=== PATIENT | female | born 1990 | race Caucasian/White ===

== ENCOUNTER 2016-10-13 22:37 | Outpatient (CLI) | payer BC ==
[~2016-10-13] VITALS: Ht 157.5 cm; Wt 89.1 kg
[2016-10-13 23:07] VITALS: Ht 157.5 cm; Wt 89.1 kg
[2016-10-13] MEDS ORDERED: FERR1TAB23 (23:07)
[2016-10-13] MEDS ORDERED: CITA10TA4 PO (23:07)
[2016-10-13] MEDS ORDERED: PANT40TA PO (23:07)
[2016-10-13] MEDS ORDERED: RANI150T3 PO (23:07)
[2016-10-13] MEDS ORDERED: PRENTAB26 PO (23:07)
[2016-10-13] MEDS ORDERED: LORAPOW16 (23:07)
[2016-10-14] MEDS ORDERED: INFLUENZA ADMINISTRATION CHARGE ONE (08:00)
[2016-10-14] MEDS ORDERED: INFLUENZA VIRUS QUAD VACCINE 0.5 ML SYR IM. ONE (08:00)
--- NOTE | 2016-10-16 13:19 | EDITING REQUIRED CODING QUERY ---
DIAGNOSIS NEEDED To promote full compliance with coding requirements relating to patient care, physician participation is requested in all cases of clinical coder uncertainty. Please assist us with the question(s) below: Coding Question: The patient received care in labor and delivery on 10/13/16 as noted within the record. Please document the diagnosis that is being addressed by the medication/treatment. Provider Response: DIAGNOSIS: labor Thank you for your assistance, Mona Rodriguez - Staff Registered Nurse
== END 2016-10-13 23:59 | disposition home or self-care (01) ==
LOC: C.OPB 22:37 → C.LD 22:38 → C.OPB 23:59
PROVIDERS: ATTEND Obstetrics & Gynecology
DX: O60.03 Preterm labor without delivery, third trimester (principal); Z3A.33 33 weeks gestation of pregnancy

== ENCOUNTER 2016-11-15 14:40 | Inpatient (IN) | payer BC ==
[~2016-11-15] VITALS: Ht 157.5 cm; Wt 91.5 kg
[~2016-11-15 14:40] MED LIST: CITA10TA4 PO; FERR1TAB23; LORAPOW16; PANT40TA PO; PRENTAB26 PO; RANI150T3 PO
[2016-11-15 15:56] LABS: MEAN CELL VOLUME 90.4 fL (80-100); MEAN CORPUSCULAR HEMOGLOBIN 31.1 pg (25-34); MEAN CORPUSCULAR HGB CONC 34.4 g/dl (32-36); MEAN PLATELET VOLUME 9.9 fL (7.4-10.4); PLATELET COUNT 470 K/uL (130-400); RED BLOOD COUNT 3.76 M/uL (4.2-5.4); WHITE BLOOD COUNT 8.32 K/uL (4.8-10.8)
[2016-11-15 16:13] VITALS: Ht 157.5 cm; Wt 91.5 kg
[2016-11-15] MEDS ORDERED: VNTHFA/IN INH (16:20)
[2016-11-15] MEDS ORDERED: hydrOXYzine HCL 10 MG TAB PO PRN (16:45)
[2016-11-15] MEDS ORDERED: DINOPROSTONE 10 MG INSERT PV ONE (17:00)
--- NOTE | 2016-11-15 17:11 | HISTORY & PHYSICAL EXAMINATION ---
DATE OF ADMISSION: 11/15/2016 REASON FOR ADMISSION: The patient is 38 weeks and 3 days with cholestasis of . Her GBS is negative. Her EDC is 11/26/2016. PAST MEDICAL HISTORY: Significant for smoking during , allergic rhinitis, migraine, asthma in remission, GERD, anxiety and cholestasis of . MEDICATIONS: Celexa and Atarax and vitamins. FAMILY HISTORY: Noncontributory. REVIEW OF SYSTEMS: Negative. ALLERGIES: No known allergies. PHYSICAL EXAMINATION: HEENT: Within normal limits. LUNGS: Clear to auscultation. COR: Regular rate and rhythm. ABDOMEN: Soft, nontender, gravid. heart tone category 1. EXTREMITIES: Within normal limits. ASSESSMENT: Term at 38 weeks and 3 days with cholestasis of . PLAN: Cervidil induction for ripening followed by induction of labor.
--- NOTE | 2016-11-15 17:22 | Progress Note ---
Progress Note Date of Service November 15, 2016. Progress Note Admit Note H&P dictated. 26 WF P0010 at 38.2 weeks with cholestasis of brought in for induction as recommended by MFM in [facility]. Cervix fingertip/50/-3/ vertex/posterior/firm. !0 mg Cervidil inserted in posterior vault for cervical ripening. GBS negative. FHT Cat 1.
[2016-11-15 17:32] LABS: ALKALINE PHOSPHATASE 246 U/L (45-117); ALT/SGPT 21 U/L (12-78); AST/SGOT 19 U/L (15-37)
[2016-11-16] MEDS ORDERED: ACETAMINOPHEN 500 MG TAB PO ONE (04:23)
[2016-11-16] MEDS ORDERED: ACETAMINOPHEN 500 MG TAB PO STA (04:26)
[2016-11-16] MEDS ORDERED: NURSING VERBAL MED ORDER ONE (04:30)
[2016-11-16] MEDS ORDERED: LACTATED RINGER'S 1000ML 500 ML IV PRN ×2 (07:24→17:21)
[2016-11-16] MEDS ORDERED: OXYTOCIN 30 UNITS/500ML NSS IV PRN (07:30)
[2016-11-16] MEDS ORDERED: BUTORPHANOL TARTRATE 1 MG/ML VIAL IV PRN ×2 (07:30→16:00)
[2016-11-16] MEDS ORDERED: ONDANSETRON INJ 2 MG/ML 2 ML VIAL IV PRN ×2 (07:30→17:30)
[2016-11-16] MEDS: LACTATED RINGER'S 1000ML 1,000 ML IV SCH ×3 (11:54→23:47)
[2016-11-16] MEDS: CITALOPRAM 20 MG TAB PO SCH (12:01)
[2016-11-16] MEDS ORDERED: EpHEDrine SULFATE INJ 50 MG/ML AMP ONE (16:46)
[2016-11-16] MEDS ORDERED: BUPIVACAINE 0.25% 30 ML VIAL ONE ×2 (16:46→21:16)
[2016-11-16] MEDS ORDERED: FENTANYL CITRATE INJ 50 MCG/1 ML 2 ML VIAL ONE ×2 (16:47→21:16)
[2016-11-16] MEDS ORDERED: FENTANYL 2MCG/ML ROPIV 1.25MG/ML 100ML BAG EPI ONE (16:47)
[2016-11-16] MEDS ORDERED: EpHEDrine SULFATE INJ 50 MG/ML AMP IV PRN (17:30)
[2016-11-16] MEDS ORDERED: NALBUPHINE HCL INJ 10 MG/ML AMP IV PRN (17:30)
[2016-11-16] MEDS ORDERED: DiphenhydrAMINE HCL 50 MG/ML VIAL IV PRN (17:30)
[2016-11-16] MEDS ORDERED: NALOXONE HCL INJ 0.4 MG/1 ML VIAL/CARP IV PRN (17:30)
[2016-11-16] MEDS: FENTANYL 2MCG/ML ROPIV 1.25MG/ML 100ML BAG EPI PRN ×3 (20:38→22:58)
--- NOTE | 2016-11-16 21:37 | Progress Note ---
Progress Note Date of Service November 16, 2016. Progress Note I was called by pt's nurse for increased pain, not improved by pt using PCEA and increasing basal rate. I came to see the pt. She said she was having perineal pain/pressure constantly and somewhat worse w/ contractions. She looked to be in no distress. I reminded her that pressure was unlikely to be relieved by the epidural, and told her that any discomfort in the perineal area is especially difficult to treat, but I would try. She understood. On exam, she had a b/l T9-10 level. I sat her up and gave a total of 4 mL of 0.25% bupivicaine, 2 mL NS, 100 mcg fentanyl in divided doses. After several minutes, she said her discomfort was much better. I again reminded her that she would not be free of pressure, especially perineal pressure, until after delivery. She understood and said she was very happy with her pain control. When I left her vitals were stable, as were heart tones.
[2016-11-17] VITALS (17 sets, daily range): BP systolic 95–111; BP diastolic 40–82; PULSE 121–128; TEMP 36.7–37.1; O2SAT 95–98
[2016-11-17] MEDS ORDERED: FENTANYL CITRATE INJ 50 MCG/1 ML 2 ML VIAL ONE ×2 (03:00→05:56)
[2016-11-17] MEDS ORDERED: NURSING VERBAL MED ORDER ONE (03:00)
[2016-11-17] MEDS: LACTATED RINGER'S 1000ML 1,000 ML IV SCH (03:03)
--- NOTE | 2016-11-17 03:17 | Progress Note ---
Progress Note Date of Service November 17, 2016. Progress Note Asked by nurse for re-dose again. Pt is apparently 10 cm and tried to push w/ out success due to fatigue. Having pain w/ contractions. Dr. Liz is hoping to get pt some relief so that she can rest and regain some energy to push. I went to see pt. She is having the same perineal cramping. Exam unchanged from prior. Appears to be in more discomfort than before. Same re-dose given (see my previous note) w/ pt sitting up. I reiterated that this perineal pain would not go away until she delivers. She got relief and was again happy w/ her pain control. Now falling asleep. Vitals stable. heart tones unchanged.
[2016-11-17] MEDS: FENTANYL 2MCG/ML ROPIV 1.25MG/ML 100ML BAG EPI PRN (04:07)
[2016-11-17] MEDS ORDERED: CEFAZOLIN IV 3,000 MG in DEXTROSE 5% 50ML 50 ML IV STA (05:38)
[2016-11-17] MEDS ORDERED: CITRIC ACID/SODIUM CITRATE 15 ML UDC PO STA (05:38)
[2016-11-17] MEDS ORDERED: OXYTOCIN INJ 10 UNITS/ML VIAL ONE ×2 (05:56→06:37)
[2016-11-17] MEDS ORDERED: MoRPHine SULFATE PF 1 MG/ML 10 ML AMP/VIAL ONE (05:56)
[2016-11-17] MEDS ORDERED: ONDANSETRON INJ 2 MG/ML 2 ML VIAL ONE (05:56)
[2016-11-17] MEDS ORDERED: LIDOCAINE/EPINEPHRINE 2% 1:200,000 20 ML SDV ONE ×2 (05:56→07:30)
[2016-11-17] MEDS ORDERED: MIDAZOLAM HCL 1 MG/ML 2ML VIAL ONE (06:57)
[2016-11-17] MEDS ORDERED: METHYLERGONOVINE MALEATE 0.2 MG/ML AMP ONE (06:57)
[2016-11-17] MEDS ORDERED: MISOPROSTOL 200 MCG TAB ONE (07:01)
[2016-11-17] MEDS ORDERED: LACTATED RINGER'S 1000ML 1,000 ML IV SCH (07:27)
[2016-11-17] MEDS ORDERED: BENZOCAINE 20% AER SPR 82.5 GM CAN EXT PRN (07:30)
[2016-11-17] MEDS ORDERED: SUPERCREAM 0.870 % 15GM JAR EXT PRN (07:30)
[2016-11-17] MEDS ORDERED: MAGNESIUM HYDROXIDE SUSP 30 ML UDC PO PRN (07:30)
[2016-11-17] MEDS ORDERED: LANOLIN OINT EXT PRN ×2 (07:30)
[2016-11-17] MEDS ORDERED: SENNA 8.6 MG TAB PO PRN (07:30)
[2016-11-17] MEDS ORDERED: DIPHTHERIA/TETANUS/PERTUSSIS 0.5 ML SYR/VIAL IM. ONE (07:30)
[2016-11-17] MEDS ORDERED: HYDROCORTISONE ACETATE 25 MG SUPP PR PRN (07:30)
--- NOTE | 2016-11-17 07:41 | [facility] Post Operative Brief Note ---
Immediate Operative Summary Operative Date November 17, 2016. Pre-Operative Diagnosis IUP Cholestasis of Failure to progress Post-Operative Diagnosis Same Procedure(s) Performed Primary caesarean section Delivery of live male child at 0636 Lower uterine transverse incision Surgeon Dr. Liz Home Worker Surgeon(s) Amelia Mei RN Estimated Blood Loss 800cc Findings Patient delivered a viable male in the vertex position at 0636 via primary LTCS. APGARs were 7 at 1 minute and 9 at 5 minutes weighing 8 # 4 oz. Cord blood obtained. An intact placenta with 3 VC delivered manually at 0637. Normal uterus and bilateral tubes and ovaries noted. Patient tolerated the surgery well and was sent to recovery with stable vital signs. Fluids (cc crystalloids) 2400 Specimens Placenta-exam Cord blood Drains Payne to Hestand Anesthesia Epidural bolus Complication(s) None Disposition L&D
--- NOTE | 2016-11-17 07:48 | Anesthesiology Progress Note ---
Anesthesia Post Op Note Date & Time November 17, 2016 at 07:44 Vital Signs Pain Intensity: 0.0 Notes Mental Status: alert / awake / arousable, participated in evaluation Pt Amnestic to Procedure: No (recall as expected) Nausea / Vomiting: adequately controlled Pain: adequately controlled Airway Patency, RR, SpO2: stable & adequate BP & HR: stable & adequate Hydration State: stable & adequate Neuraxial Anesthesia: was administered, sensory block is resolving Anesthetic Complications: no major complications apparent Pt had C/S under epidural for arrest of descent. She had a pre-existing epidural which I dosed for the procedure. She was tachy before and during the procedure and remains so (HR in 120s when I placed epidural, 150s when we started the procedure, 130-140s now). She says she has a h/o this. Otherwise, her anesthetic course was unremarkable. Post-op vitals: BP 129/59, HR 140, RR 18 , SpO2 96% on RA, T 36.5.
[2016-11-17] MEDS ORDERED: EpHEDrine SULFATE INJ 50 MG/ML AMP ONE (07:49)
[2016-11-17] MEDS ORDERED: ALBUTEROL HFA 8 GM INHALER INH PRN (08:00)
[2016-11-17] MEDS ORDERED: RANITIDINE HCL 150 MG TAB PO SCH (08:00)
[2016-11-17] MEDS ORDERED: FERROUS SULFATE 325 MG TAB PO SCH (08:00)
[2016-11-17] MEDS: OXYTOCIN INJ 30 UNITS in LACTATED RINGER'S 1000ML 1,000 ML IV SCH ×2 (08:06→17:21)
[2016-11-17] MEDS ORDERED: LACTATED RINGER'S 1000ML 500 ML IV PRN (08:07)
[2016-11-17] MEDS ORDERED: SODIUM CHLORIDE 0.9% 1000ML 1,000 ML IV PRN (08:07)
[2016-11-17] MEDS ORDERED: NALOXONE HCL INJ 0.08 MG in SYRINGE 1.8 ML IV PRN (08:07)
--- NOTE | 2016-11-17 08:09 | Anesthesia Procedure Note ---
Anesthesia Epidural Removal Nt Date & Time November 17, 2016 at 08:09 Vital Signs Pain Intensity: 0.0 Notes Mental Status: alert / awake / arousable, participated in evaluation Nausea / Vomiting: adequately controlled Pain: adequately controlled Airway Patency, RR, SpO2: stable & adequate BP & HR: stable & adequate Hydration State: stable & adequate Neuraxial Anesthesia: was administered, sensory block is resolving Anesthetic Complications: no major complications apparent, pt satisfied with anesthetic care Epidural: removed without complications, with tip intact
[2016-11-17] MEDS ORDERED: NALOXONE HCL 0.4 MG/1 ML VIAL/CARP IV PRN (08:15)
[2016-11-17] MEDS ORDERED: DiphenhydrAMINE HCL 50 MG/ML VIAL IV PRN (08:15)
[2016-11-17] MEDS ORDERED: EpHEDrine SULFATE INJ 50 MG/ML AMP IV PRN (08:15)
[2016-11-17] MEDS ORDERED: ONDANSETRON INJ 2 MG/ML 2 ML VIAL IV PRN (08:15)
[2016-11-17] MEDS ORDERED: MoRPHine SULFATE 2 MG/ML CARP IV PRN (08:15)
[2016-11-17] MEDS ORDERED: PROMETHAZINE HCL INJ 25 MG in SODIUM CHLORIDE 0.9% 50ML 50 ML IV PRN (08:15)
[2016-11-17] MEDS ORDERED: NO NARCOTICS OR SEDATIVES SCH (08:15)
[2016-11-17] MEDS ORDERED: MEPERIDINE HCL 25 MG/ML CARP IV PRN (08:15)
[2016-11-17] MEDS ORDERED: MoRPHine SULFATE PF 1 MG/ML 10 ML AMP/VIAL EPI PRN (08:15)
[2016-11-17] MEDS: CITALOPRAM 20 MG TAB PO SCH ×2 (08:21→09:13)
[2016-11-17] MEDS ORDERED: MISOPROSTOL 200 MCG TAB PO SCH (08:30)
[2016-11-17] MEDS: KETOROLAC TROMETHAMINE 30 MG/ML VIAL IV. PRN ×3 (08:36→22:21)
--- NOTE | 2016-11-17 08:38 | OB/GYN Progress Note ---
MONOGRAM MAKER Progress Note Date of Service: November 17, 2016. Postop check Patient is seen and examined Feels well, no complaints Breast feeding her baby Pain is under control with meds No CP/ SOB/ Dizziness/ N&V/ VB/ Leg pain Not OOB yet Tolerating clears Still anxious but states she is fine, declines any meds or psychiatry counseling States will take Ativan if needed later VS: Pulse 120-130's, has been high since admission, was 150's in OR UOP: 102/57 UOP: About 300 ml in bag since OR ( 2hours) PE: General: Alert, orientedx3, NAD CVS: S1S2 RRR, tachycardic Lungs: CTAB Abd: soft, NT, ND, BS+, Dressing C/D/I, fundus firm, at the U Lochia: dark moderate Ext: NT, no edema, SCD's on AP: 26 yo female s/p Primary Csection this morning , pod#0 VSS, Afebrile doing well UOP good Will increase pitocin rate to 150 ml/hour Cytotec intrabuccal Continue to monitor closely and postop care Encourage PO intake, may ambulate this evening All questions were answered
[2016-11-17] MEDS ORDERED: LORAZEPAM 2 MG/ML 1 ML VIAL IV PRN (08:45)
[2016-11-17] MEDS ORDERED: LORAZEPAM INJ 0.5 MG in SYRINGE 0.75 ML IV PRN (08:45)
--- NOTE | 2016-11-17 09:01 | OPERATIVE REPORT ---
DATE OF OPERATION: 11/17/2016 PREOPERATIVE DIAGNOSES: 1. Intrauterine at 38 weeks and 5 days' gestation. 2. Cholestasis of . 3. Failure to progress. POSTOPERATIVE DIAGNOSES: Same. OPERATIVE PROCEDURE: Primary low transverse section. SURGEON: Dr. Christopher Liz. SNACK FOODS MIXER OPERATOR: Amelia Mei RN ANESTHESIA: Epidural bolus. ESTIMATED BLOOD LOSS: 800 mL. INTRAVENOUS FLUIDS: 2400 mL crystalloids. URINE OUTPUT: 150 mL clear urine. DRAINS: Payne to gravity. COMPLICATIONS: None. DISPOSITION: To labor and delivery. OPERATIVE FINDINGS: The patient delivered a viable male infant in the vertex position at 06:36 via primary low transverse section. Apgars were 7 at 1 minute and 9 at 5 minutes. Baby weighed 8 pounds 4 ounces. Cord blood was then obtained and an intact placenta with 3-vessel cord was delivered manually at 06:37 and sent to pathology. Normal uterus and bilateral tubes and ovaries were noted. The patient tolerated the surgery well and was sent to recovery with stable vital signs. OPERATIVE PROCEDURE IN DETAIL: The patient was taken to the operating room, where her epidural was bolused. She was immediately placed in the dorsal supine position with a left lateral tilt and was prepped and draped in a manner appropriate for the procedure. Once anesthesia was found to be adequate, a Pfannenstiel skin incision was made 2 fingerbreadths above the pubic symphysis and was carried down through to a layer of the rectus fascia. The fascia was nicked in the midline and extended bilaterally with curved Bolton scissors. The superior aspect of the fascial incision was grasped with Moni clamps, elevated, and the rectus muscles were dissected off with the use of the electrocautery and curved Bolton scissors. Likewise, the inferior aspect of the fascial incision was grasped with Moni clamps, elevated, and the rectus muscles were dissected off with the use of the curved Bolton scissors. The rectus muscles were in the midline and the peritoneum was then grasped with hemostats x2 and entered with Metzenbaum scissors. The peritoneal incision was then extended cephalocaudally with gentle traction. The bladder blade was then placed within the abdomen and the vesicouterine peritoneum was identified and a bladder flap was created with the Metzenbaum scissors and digital traction. The bladder flap was then reincorporated beneath Nils blade. A transverse incision was then made on the uterus and extended bilaterally with the bandage scissors. The head was then identified and delivered through the incision along with the rest of the body. The baby was bulb suctioned at delivery. Cord was clamped x2 and cut. The baby was immediately handed to an awaiting aviation maintenance instructor for further evaluation and management. Please see their notes for further baby assessment. Cord blood was then obtained and an intact placenta with a 3-vessel cord was delivered manually and sent to pathology. The uterus was then exteriorized and wrapped in a moist laparotomy sponge. Ten units of Pitocin was given intrauterine. The uterus was then cleared of any trailing membrane and debris with the laparotomy sponge. The uterine incision was grasped with ring forceps at 4 quadrants and was closed with 0 Vicryl suture in a continuous locking fashion. A second 0 Vicryl suture was used in imbricating fashion to ensure hemostasis. Any residual bleeding was suture ligated with 0 Vicryl suture in a [id number] interrupted fashion. It was noted that the uterus remained boggy and therefore, she was given Methergine 0.25 mg IM. Inspection of the uterine incision was noted to be hemostatic. The posterior cul-de-sac was then irrigated with warm saline solution. The uterus was then placed back within its normal anatomic position within the abdomen. The anterior cul-de-sac was then irrigated with warm saline solution. Again, the uterine incision was noted to be hemostatic. The bladder flap was reapproximated to the lower uterine segment with 3-0 Vicryl suture in continuous running fashion. All instruments were then removed from the abdomen. The peritoneum was grasped with Odalis clamps at 4 quadrants and was closed with 2-0 Vicryl suture in continuous running fashion. The rectus fascia was then closed with 0 Vicryl suture in continuous running fashion. The subcutaneous tissue was reapproximated with 2-0 Vicryl suture in continuous running fashion. Skin was then closed with dali. Excellent hemostasis was noted through all tissue layers. Both the patient and baby tolerated the surgery well and were sent to recovery with stable vital signs. All sponge and instrument counts were found to be correct x2. I attest to the content of the Intraoperative Record and any orders documented therein. Any exceptions are noted below. ROBINSON
[2016-11-17] MEDS: SIMETHICONE 80 MG CHEW PO SCH ×4 (09:04→20:08)
[2016-11-17] MEDS: DOCUSATE SODIUM 100 MG CAP PO SCH ×2 (09:04→20:08)
[2016-11-17] MEDS: PRENATAL VITAMIN TAB PO SCH (09:04)
[2016-11-17] MEDS: PANTOprazole SOD 40 MG TAB PO SCH (09:14)
[2016-11-17 12:16] LABS: HEMATOCRIT 23.9 % (37-47); MEAN CELL VOLUME 90.9 fL (80-100); MEAN CORPUSCULAR HEMOGLOBIN 30.4 pg (25-34); MEAN CORPUSCULAR HGB CONC 33.5 g/dl (32-36); MEAN PLATELET VOLUME 9.9 fL (7.4-10.4); PLATELET COUNT 359 K/uL (130-400); RED BLOOD COUNT 2.63 M/uL (4.2-5.4); WHITE BLOOD COUNT 22.37 K/uL (4.8-10.8)
[2016-11-17 12:17] LABS: BASO ABS # 0.01 K/uL (0-0.2); COMPLETE YES; IG% 0.4 %; LYMPH % 5.4 %; LYMPH ABS # 1.21 K/uL (1.2-3.4); MONO % 5.9 %; NEUT % 88.3 %
[2016-11-17 12:20] LABS: CALCIUM 8.2 mg/dl (8.5-10.1); CREATININE 0.76 mg/dl (0.60-1.20); POTASSIUM 3.5 mmol/L (3.5-5.1)
[2016-11-17 12:37] LABS: ALB/GLOB RATIO 0.7 (0.9-2)
[2016-11-17] MEDS: MAGNESIUM SULFATE 1GM / D5W 1 GM in PREMIXED IN D5W 100 ML IV SCH ×2 (15:06→16:40)
[2016-11-17] MEDS: CALCIUM CARBONATE 1250MG TAB PO SCH ×2 (15:06→20:09)
[2016-11-17 15:30] LABS: HEMATOCRIT 21.7 % (37-47)
[2016-11-17] MEDS ORDERED: ACETAMINOPHEN 325 MG TAB PO ONE (16:15)
--- NOTE | 2016-11-17 16:15 | OB/GYN Progress Note ---
ARMATURE REPAIRER Progress Note Date of Service: November 17, 2016. See QS notes for details Repeat H&H: 7.4/21.4 Patient tachycardic Recommended blood transfusion Discussed the risks and benefits in details and went over the consent with her All questions were answered Will transfuse 2 units of PRBCC Continue to monitor closely
[2016-11-17] MEDS ORDERED: ACETAMINOPHEN 325 MG TAB PO SCH (16:30)
[2016-11-17] MEDS: NALBUPHINE HCL INJ 10 MG/ML AMP IV PRN ×2 (17:47→21:37)
--- NOTE | 2016-11-17 18:48 | OB/GYN Progress Note ---
MANAGER DELI Progress Note Date of Service: November 17, 2016. Patient is reevaluated She is having 1st unit of blood now Feels well no complaints Did not want to have Benadryl due to f/h of severe reaction ( mother had TX after benadryl) No itching or hives No CP/SOB Nursing her baby comfortably Discussed benefits of breast feeding for baby and herself She had questions about TOLAC/ with next She was on Ranitidine for GERD, likes to start it back Continue to monitor closely All questions were answered
[2016-11-17] MEDS ORDERED: FENTANYL CITRATE INJ 50 MCG/1 ML 2 ML VIAL IV ONE (19:30)
[2016-11-17] MEDS: RANITIDINE HCL 150 MG TAB PO SCH (20:09)
[2016-11-18] VITALS (8 sets, daily range): BP systolic 95–121; BP diastolic 58–77; PULSE 109–116; TEMP 36.6–37.1; O2SAT 98
[2016-11-18] MEDS: OXYTOCIN INJ 30 UNITS in LACTATED RINGER'S 1000ML 1,000 ML IV SCH ×2 (01:00→14:33)
[2016-11-18] MEDS ORDERED: ONDANSETRON INJ 2 MG/ML 2 ML VIAL IV PRN (01:30)
[2016-11-18] MEDS ORDERED: KETOROLAC TROMETHAMINE 30 MG/ML VIAL IV. PRN (01:30)
[2016-11-18] MEDS ORDERED: ZOLPIDEM TARTRATE 5 MG TAB PO PRN (01:30)
[2016-11-18] MEDS ORDERED: DC INTRASPINAL MORPHINE SCH (01:30)
[2016-11-18] MEDS ORDERED: OXYCODONE/ACETAMINOPHEN 5-325 TAB PO PRN (01:30)
[2016-11-18 05:38] LABS: BASO % 0.2 %; BASO ABS # 0.03 K/uL (0-0.2); EOS % 0.8 %; HEMATOCRIT 24.6 % (37-47); IG% 0.4 %; LYMPH % 7.3 %; LYMPH ABS # 1.15 K/uL (1.2-3.4); MEAN CELL VOLUME 90.8 fL (80-100); MEAN CORPUSCULAR HEMOGLOBIN 31.7 pg (25-34); MEAN PLATELET VOLUME 10.2 fL (7.4-10.4); MONO % 7.8 %; NEUT % 83.5 %; PLATELET COUNT 300 K/uL (130-400); RED BLOOD COUNT 2.71 M/uL (4.2-5.4); WHITE BLOOD COUNT 15.67 K/uL (4.8-10.8)
[2016-11-18 06:32] LABS: COMPLETE YES
[2016-11-18] MEDS: METHYLERGONOVINE MALEATE 0.2 MG TAB PO SCH ×5 (07:25→23:15)
[2016-11-18] MEDS: CITALOPRAM 20 MG TAB PO SCH (07:26)
[2016-11-18] MEDS: FERROUS SULFATE 325 MG TAB PO SCH ×2 (07:27→19:48)
[2016-11-18] MEDS: DOCUSATE SODIUM 100 MG CAP PO SCH ×2 (07:27→19:48)
[2016-11-18] MEDS: SIMETHICONE 80 MG CHEW PO SCH ×4 (07:28→19:49)
[2016-11-18] MEDS: PRENATAL VITAMIN TAB PO SCH (07:28)
[2016-11-18] MEDS: CALCIUM CARBONATE 1250MG TAB PO SCH ×2 (07:28→19:49)
[2016-11-18] MEDS: RANITIDINE HCL 150 MG TAB PO SCH ×2 (07:29→19:49)
[2016-11-18] MEDS: PANTOprazole SOD 40 MG TAB PO SCH (07:29)
[2016-11-18] MEDS: OXYCODONE/ACETAMINOPHEN 5-325 TAB PO PRN ×3 (11:11→23:15)
[2016-11-18] MEDS: IBUPROFEN 600 MG TAB PO PRN ×3 (11:11→23:15)
--- NOTE | 2016-11-18 11:16 | OB/GYN Progress Note ---
OIL AND GAS EXPLORATION TECHNICIAN Progress Note Date of Service: November 18, 2016. Patient is seen and examined. She feels well, no complaints. Pain is under control with oral meds. Ambulated to BR Voided without difficulty Tolerating regular diet with out N&V Flatus + BM neg Bleeding is minimal No fever/ chills/ CP/ SOB/ palpations/ N&V/ Leg pain Breast feeding without problems Date Time Temp Pulse Resp B/P Pulse Ox O2 Delivery O2 Flow Rate FiO2 11/18/16 07:30 Room Air 11/18/16 07:30 37.1 116 20 100/67 11/18/16 04:35 36.9 116 20 95/58 Room Air 11/18/16 01:30 18 98 11/18/16 00:47 98 Room Air 11/18/16 00:44 36.9 115 20 108/59 98 Room Air 11/18/16 00:30 20 98 11/17/16 23:30 19 97 11/17/16 22:30 20 98 11/17/16 21:30 18 96 11/17/16 20:50 36.8 125 18 110/62 96 11/17/16 20:30 20 97 11/17/16 20:20 36.9 121 16 104/61 97 11/17/16 20:20 36.9 121 16 104/61 97 Room Air 11/17/16 20:05 36.8 121 18 96/61 97 11/17/16 19:51 36.9 121 18 96/60 95 11/17/16 19:50 36.9 125 18 96/60 95 11/17/16 19:30 18 96 11/17/16 19:00 36.9 125 18 96/40 95 11/17/16 18:30 18 97 11/17/16 18:30 36.7 122 16 104/59 97 11/17/16 18:14 36.8 128 18 95/56 97 11/17/16 17:58 37.1 121 18 111/82 11/17/16 17:30 20 96 11/17/16 16:30 18 95 11/17/16 15:51 20 95 11/17/16 15:51 96 Room Air 11/17/16 15:51 36.8 126 20 110/54 95 Room Air 8-Hour Column 11/17/16 11/18/16 11/18/16 16:00 00:00 08:00 Intake Total 1240 ml 1386 ml Output Total 850 ml Balance 1240 ml 536 ml 24-Hour Column 11/18/16 08:00 Intake Total 2626 ml Output Total 850 ml Balance 1776 ml Last 24 Hours Test 11/17/16 11:20 11/17/16 15:15 11/18/16 05:03 White Blood Count 22.37 K/uL 15.67 K/uL Red Blood Count 2.63 M/uL 2.71 M/uL Hemoglobin 8.0 g/dL 7.4 g/dL 8.6 g/dL Hematocrit 23.9 % 21.7 % 24.6 % Mean Corpuscular Volume 90.9 fL 90.8 fL Mean Corpuscular Hemoglobin 30.4 pg 31.7 pg Mean Corpuscular Hemoglobin Concent 33.5 g/dl 35.0 g/dl Platelet Count 359 K/uL 300 K/uL Mean Platelet Volume 9.9 fL 10.2 fL Neutrophils (%) (Auto) 88.3 % 83.5 % Lymphocytes (%) (Auto) 5.4 % 7.3 % Monocytes (%) (Auto) 5.9 % 7.8 % Eosinophils (%) (Auto) 0.0 % 0.8 % Basophils (%) (Auto) 0.0 % 0.2 % Neutrophils # (Auto) 19.76 K/uL 13.08 K/uL Lymphocytes # (Auto) 1.21 K/uL 1.15 K/uL Monocytes # (Auto) 1.31 K/uL 1.22 K/uL Eosinophils # (Auto) 0.00 K/uL 0.13 K/uL Basophils # (Auto) 0.01 K/uL 0.03 K/uL RDW Standard Deviation 46.5 fL 47.9 fL RDW Coefficient of Variation 14.1 % 14.5 % Immature Granulocyte % (Auto) 0.4 % 0.4 % Immature Granulocyte # (Auto) 0.08 K/uL 0.06 K/uL Red Blood Cell Morphology Unremarkable Unremarkable Sodium Level 137 mmol/L Potassium Level 3.5 mmol/L Chloride Level 106 mmol/L Carbon Dioxide Level 22 mmol/L Anion Gap 9.0 mmol/L Blood Urea Nitrogen 9 mg/dl Creatinine 0.76 mg/dl Est Creatinine Clear Calc Drug Dose 118.1 ml/min Estimated GFR () 125.5 Estimated GFR (Non- 108.3 BUN/Creatinine Ratio 12.0 Random Glucose 109 mg/dl Calcium Level 8.2 mg/dl Magnesium Level 1.1 mg/dl 1.6 mg/dl Total Bilirubin 0.5 mg/dl Aspartate Amino Transf (AST/SGOT) 33 U/L Alanine Aminotransferase (ALT/SGPT) 21 U/L Alkaline Phosphatase 179 U/L Total Protein 5.0 gm/dl Albumin 2.0 gm/dl Globulin 3.0 gm/dl Albumin/Globulin Ratio 0.7 PE: General: Alert, orientedx3, NAD CVS: S1S2 RRR, mild tachycardia Lungs; CTAB Abd: soft, NT, fundus firm, below Umbilicus Incision/ dali: Clean, dry, intact Perineum intact, Lochia rubra minimal Ext; NT, no edema AP: 26 yo s/p C Section, blood transfusion for anemia pod# 1 VSS Afebrile doing well Iron bid Magnesium PO Continue routine postop care Encourage ambulation, PO intake All questions were answered
[2016-11-18] MEDS: MAGNESIUM OXIDE 400 MG TAB PO SCH ×2 (12:12→19:49)
[2016-11-18] MEDS ORDERED: BISACODYL 5 MG TABEC PO ONE (22:00)
[2016-11-19 00:10] VITALS: BP 115/69; PULSE 101; TEMP 36.7; O2SAT 98
[2016-11-19] MEDS: IBUPROFEN 600 MG TAB PO PRN ×3 (06:10→21:35)
[2016-11-19] MEDS: OXYCODONE/ACETAMINOPHEN 5-325 TAB PO PRN ×3 (06:10→21:35)
[2016-11-19] MEDS ORDERED: BISACODYL 10 MG SUPP PR PRN (07:30)
[2016-11-19 08:15] LABS: HEMATOCRIT 27.1 % (37-47)
[2016-11-19] MEDS: CITALOPRAM 20 MG TAB PO SCH (08:45)
[2016-11-19] MEDS: FERROUS SULFATE 325 MG TAB PO SCH ×2 (08:46→20:15)
[2016-11-19] MEDS: DOCUSATE SODIUM 100 MG CAP PO SCH ×2 (08:46→20:15)
[2016-11-19] MEDS: MAGNESIUM OXIDE 400 MG TAB PO SCH ×2 (08:47→20:15)
[2016-11-19] MEDS: SIMETHICONE 80 MG CHEW PO SCH ×4 (08:47→20:15)
[2016-11-19] MEDS: CALCIUM CARBONATE 1250MG TAB PO SCH ×2 (08:47→20:15)
[2016-11-19] MEDS: PRENATAL VITAMIN TAB PO SCH (08:47)
[2016-11-19] MEDS: RANITIDINE HCL 150 MG TAB PO SCH ×2 (08:48→20:15)
[2016-11-19] MEDS: PANTOprazole SOD 40 MG TAB PO SCH (08:49)
[2016-11-19] MEDS ORDERED: NURSING VERBAL MED ORDER ONE (09:15)
--- NOTE | 2016-11-19 12:25 | OB/GYN Progress Note ---
SSIS DEVELOPER Progress Note Date of Service November 19, 2016. Subjective conversation w/ patient, physical exam Ambulation: ambulating normally Voiding: no voiding problems Passing Gas: Yes Diet Tolerance: Regular Diet Lochia: Small Feeding Type: Breast Feeding Pain: 2/10 Notes: Doing well, no concerns. Ambulating without difficulty. Tolerating regular diet. Lochia minimal. Feeling good today. Objective Vital Signs Date Time Temp Pulse Resp B/P Pulse Ox O2 Delivery O2 Flow Rate FiO2 11/19/16 07:30 Room Air 11/19/16 00:10 98 Room Air 11/19/16 00:10 36.7 101 18 115/69 98 Room Air 11/18/16 15:40 Room Air 11/18/16 15:40 36.6 111 18 121/77 Room Air Physical Exam General Appearance: WELL-APPEARING Respiratory/Chest: chest non-tender, lungs clear Cardiovascular: regular rate, rhythm Abdomen: normal bowel sounds, soft Fundus: Firm Incision Description: Clean, Dry & Intact Extremities: normal range of motion, non-tender, no calf tenderness Laboratory Results Last 24 Hours Test 11/19/16 07:55 Hemoglobin 9.2 g/dL Hematocrit 27.1 % Assessment and Plan Post-Op Day Number: 2 Continue Routine Care: -Continue routine postop care -Hgb stable, s/p 2 units PRBC, bleeding minimal -Anticipate d/c home tomorrow.
[2016-11-19 15:05] VITALS: BP 106/68; PULSE 101; TEMP 36.9; O2SAT 99
[2016-11-19 23:30] VITALS: BP 121/73; PULSE 113; TEMP 36.8; O2SAT 99
[2016-11-20] MEDS: OXYCODONE/ACETAMINOPHEN 5-325 TAB PO PRN ×2 (05:15→09:19)
[2016-11-20] MEDS: IBUPROFEN 600 MG TAB PO PRN ×2 (05:15→09:19)
[2016-11-20] MEDS ORDERED: CLC100 PO (07:13)
[2016-11-20] MEDS ORDERED: MGNO400 PO (07:13)
[2016-11-20] MEDS ORDERED: MTR600X PO (07:13)
[2016-11-20] MEDS ORDERED: FRRS300 PO (07:13)
[2016-11-20] MEDS ORDERED: CLCC1250 PO (07:13)
[2016-11-20] MEDS ORDERED: OXYC-57 PO (07:13)
--- NOTE | 2016-11-20 07:14 | Discharge Instructions ---
Discharge Instructions Date of Service November 20, 2016. Admission Reason for Admission: Induction Discharge Discharge Diagnosis / Problem: Primary Csection, anemia Discharge Goals Goal(s): Routine recovery after Medications Continue Dispensed Medications: lansinoh Activity Recommendations Activity Limitations: as noted below Lifting Limitations: no more than 10 pounds Exercise/Sports Limitations: until after follow-up appointment May Resume Sexual Activity: after follow-up appointment Shower/Bathe: keep incision dry Driving or Machine Use: ACTIVITY RECOMMENDATIONS: * Gradual return to full activity over the next 2-3 weeks. * No lifting - nothing heavier than baby over the next 2-3 weeks. * Do not engage in vigorous exercise, sexual activity or sports until cleared by your physician. * Do not drive or operate any motorized equipment until cleared by your physician. * You may shower/bathe daily. BREAST CARE: If you are not breast feeding: * Wear a supportive bra 24 hours a day for one to two weeks. * Avoid stimulating your breasts and nipples as much as possible during the first few weeks after delivery. * When taking a shower, have the warm water hit your back, not breasts. * When your breasts feel full, apply ice packs. Usually three to four times a day helps ease the discomfort. * Take a mild pain medication (Tylenol/Motrin) when you are uncomfortable. If breast feeding: * Use breast milk to lubricate nipples. Lansinoh cream may be used for sore nipples. You do not need to remove cream prior to breast feeding. If using a different brand of cream, check the label for directions regarding removal of cream prior to nursing. * Wear a supportive bra. * If having problems with breasts or breast feeding, call a websphere commerce consultant or your health care provider. OVER THE COUNTER MEDICATION: * For discomfort or pain, you may use Acetaminophen (Tylenol), Ibuprofen (Advil ), or Naproxen (Aleve) following the package directions. * For constipation you may use Colace following the package directions. SPECIAL CARE INSTRUCTIONS: When you are discharged from the hospital, it is important for you to follow the instructions listed below: * During the first week at home, you should be able to care for yourself and your baby. In addition, the usual light household activities are encouraged. * Limit your activities to the way you feel. Do not try to clean the house or move furniture. Be sensible. * If you actively engage in sports and have done so up until the time of your delivery, you may resume these activities as soon as you feel able. This may take up to one month or even longer. Use good judgment. * Continue to take your vitamins for at least six weeks after the of your baby. * Your diet need not be limited unless you were on a special diet before your delivery. Breast-feeding mothers need around 2500 calories per day and at least 64-80 ounces of fluid per day (8 to 10 glasses). * You should eat foods from the four major food groups. Crash diets or fad diets are to be avoided. Eating lean meats, fresh fruits and vegetables, low-fat dairy products, high fiber foods and a regular exercise program, will help you get back to your pre- weight without putting your health at risk. * Constipation is sometimes a problem after delivery. Take a mild laxative as needed. If breast feeding, Milk of Magnesia is acceptable to use. You may use a suppository or Fleets enema if no episiotomy. * A daily shower or tub bath is suggested. Be sure to thoroughly and gently dry the perineum. * A bloody vaginal discharge will usually continue until around four weeks post . A small amount of bleeding may continue for as long as six weeks. Vaginal discharge changes from the bright red bleeding after delivery to pink then brownish and finally yellowish-pink before becoming white and disappearing. * Bleeding may increase with activity. Your first period may come in 4-8 weeks. If you are breast feeding, your period may be delayed even longer. * [place] (sex) can begin whenever both you and your partner feel comfortable and do not have any form of genital infection. It is recommended that you wait at least six weeks for internal and external healing to occur. If you have questions, please talk to your health care practitioner. A condom should be used to prevent infection and . * Foreplay, gentle intercourse and lubrication is very important the first several times to prevent pain. A water-based lubricant such as K-Y jelly or Astroglide may be used. * Tampons and/or Douching should be avoided until after six weeks check-up. * If you have RH negative blood and your baby is RH positive, you will receive RHOGAM by injection prior to discharge. The nurse will give you a card to keep with you that has the date and place that you received RHOGAM after delivery. * During your care, you had a Rubella screen done to check for the presence of rubella antibodies in your blood. If your test was negative, you will receive a Rubella vaccine prior to discharge. This vaccine may cause a fever, soreness at the injection site and flu-like symptoms. If these symptoms persist, notify your health care practitioner. is not advised for three months after a Rubella vaccine. * Verbalizes understanding of car seat law as reviewed with patient nursing. * Car Seat hand-out given and reviewed with patient by nursing. * Shaken baby information reviewed with patient by nursing. Call you doctor if: * Heavy bleeding (saturating several pads an hour) or passing clots the size of your fist. * A fever >101 degrees F (38.3 degrees C) on two occasions four hours apart and /or chills. * Unusual pain in the pelvic or vaginal areas. Pain should improve each day . * Call the doctor for any increased redness, drainage or swelling around the incision and any pain unrelieved by prescribed pain medication. * Any signs or symptoms of phlebitis (possible blood clots forming in the veins ): leg pain, warm, red or swollen area on leg. * "Baby Blues" lasting longer than two weeks. If you have any questions or concerns, call your health care practitioner at . FOLLOW-UP VISIT: * Incision check (staple removal) in 1 week. Please call doctor's office at to set up appointment. * Please call the office at to schedule a 6 week examination. It is important you keep this appointment. * It is important for you to make arrangements for either yearly or twice yearly check-ups thereafter. . Current Hospital Diet Patient's current hospital diet: Regular OB Diet Discharge Diet Recommended Diet: Regular Diet Procedures Procedures Performed: Primary caesarean section Delivery of live male child at 0636 Lower uterine transverse incision Pending Studies Studies pending at discharge: no Medical Emergencies . Who to Call and When: Medical Emergencies: If at any time you feel your situation is an emergency, please call 911 immediately. . Non-Emergent Contact Non-Emergency issues call your: Primary Care Provider, Surgeon Call Non-Emergent contact if: temperature is above 100.5, your pain is not controlled, your pain is worsening, wound has increased drainage, wound has increased redness, wound has increased pain . . "Provider Documentation" section prepared by [employer]. . VTE Core Measure Inpt VTE Proph given/why not?: Treatment not indicated
--- NOTE | 2016-11-20 07:22 | OB/GYN Progress Note ---
AUTOMOBILE SALES REPRESENTATIVE Progress Note Date of Service: November 20, 2016. Patient is seen and examined. She feels well, no complaints. Pain is under control with oral meds. Ambulating without dizziness Voiding without difficulty Tolerating regular diet with out N&V Flatus + BM NEG Bleeding is minimal No fever/ chills/ CP/ SOB/ N&V/ Leg pain Breast feeding without problems Last 24 Hours Test 11/19/16 07:55 Hemoglobin 9.2 g/dL Hematocrit 27.1 % Date Time Temp Pulse Resp B/P Pulse Ox O2 Delivery O2 Flow Rate FiO2 11/19/16 23:30 36.8 113 18 121/73 99 Room Air 11/19/16 23:30 99 Room Air 11/19/16 15:05 99 Room Air 11/19/16 15:05 36.9 101 18 106/68 99 Room Air 11/19/16 07:30 Room Air PE: General: Alert, orientedx3, NAD CVS: S1S2 RRR Lungs; CTAB Abd: soft, NT, fundus firm, below Umbilicus Incision: Clean, dry, intact Perineum intact, Lochia rubra minimal Ext; NT, 2+/2+ edema, symmetric, No erythema AP: 26 yo s/p C Section, pod# 3 VSS Afebrile doing well Continue routine postop care Encourage ambulation, PO intake All questions were answered Instructions were given when to call D/C home / nesting f/u in office for staple removal
[2016-11-20 07:30] VITALS: BP 110/71; PULSE 96; TEMP 36.7; O2SAT 98
[2016-11-20] MEDS: RANITIDINE HCL 150 MG TAB PO SCH (08:30)
[2016-11-20] MEDS: CALCIUM CARBONATE 1250MG TAB PO SCH (08:30)
[2016-11-20] MEDS: CITALOPRAM 20 MG TAB PO SCH (08:30)
[2016-11-20] MEDS: FERROUS SULFATE 325 MG TAB PO SCH (08:31)
[2016-11-20] MEDS: DOCUSATE SODIUM 100 MG CAP PO SCH (08:31)
[2016-11-20] MEDS: MAGNESIUM OXIDE 400 MG TAB PO SCH (08:31)
[2016-11-20] MEDS: PRENATAL VITAMIN TAB PO SCH (08:31)
[2016-11-20] MEDS: SIMETHICONE 80 MG CHEW PO SCH (08:32)
[2016-11-20] MEDS: PANTOprazole SOD 40 MG TAB PO SCH (08:32)
[2016-11-20] MEDS ORDERED: MISC-696 (08:50)
[2016-11-20 10:10] VITALS: BP_DIAS 71; PULSE 96; TEMP 36.7
[2016-11-22 22:21] LABS: CHENODEOXYCHOLIC ACID 2.9 umol/L (< OR = 3.1); CHOLIC ACID 2.4 umol/L (< OR = 1.8); DEOXYCHOLIC ACID 1.5 umol/L (< OR = 2.4); TOTAL BILE ACIDS 6.8 umol/L (< OR = 6.8)
--- NOTE | 2016-12-02 12:07 | Discharge Summary ---
Discharge Summary Date of Service December 02, 2016. Discharge Summary Admission Date: November 15, 2016 at 14:40 Discharge Date: November 20, 2016 Principal Diagnosis: IUP at 38.3 weeks, Cholestasis of , Failure to progress Procedures: Primary Low Transverse Section. Medication Reconciliation New Medications: Misc. Devices (Breast Pump) 1 Mis Mis EA, #1 Calcium Carbonate (Oyster Shell Calcium) 1,250 Mg Tab 1250 MG PO DAILY, #60 TAB Docusate Sodium (Docusate Sodium) 100 Mg Cap 100 MG PO BID, #60 CAP Ferrous Sulfate (Ferrous Sulfate) 325 Mg Tab 325 MG PO BID, #60 TAB Ibuprofen (Ibuprofen) 600 Mg Tab 600 MG PO Q4H PRN for Pain, CHEW, Cramping, or Fever, #40 TAB Magnesium Oxide (Magnesium-Oxide) 400 Mg Tab 400 MG PO DAILYBD, #60 TAB Oxycodone/Acetaminophen 5MG/325MG (Percocet 5MG/325MG) Tab 1 TAB PO Q4H PRN for Pain - Pain Scale 1-5, #30 TAB PAIN Continued Medications: Albuterol Hfa (Ventolin Hfa) 200 Puffs/70436 Mcg Aers 2-4 PUFFS INH Q6H PRN for Wheezing, #1 INHALER Citalopram Hydrobromide (Citalopram Hydrobromide) 10 Mg Tab 1 TAB PO DAILY for 30 Days, #30 TAB 3 Refills Loratadine (Bulk) (Loratadine) 1 Pow Pow Pantoprazole (Protonix) 40 Mg Tab 40 MG PO DAILY, #30 TAB Ranitidine Hcl (Zantac) 150 Mg Tab 1 TAB PO BID for 90 Days, #180 TAB 3 Refills Admission Information HPI (per Admitting provider): REASON FOR ADMISSION: The patient is 38 weeks and 3 days with cholestasis of . Her GBS is negative. Her EDC is 11/26/2016. PAST MEDICAL HISTORY: Significant for smoking during , allergic rhinitis, migraine, asthma in remission, GERD, anxiety and cholestasis of . MEDICATIONS: Celexa and Atarax and vitamins. FAMILY HISTORY: Noncontributory. REVIEW OF SYSTEMS: Negative. ALLERGIES: No known allergies. PHYSICAL EXAMINATION: HEENT: Within normal limits. LUNGS: Clear to auscultation. COR: Regular rate and rhythm. ABDOMEN: Soft, nontender, gravid. heart tone category 1. EXTREMITIES: Within normal limits. ASSESSMENT: Term at 38 weeks and 3 days with cholestasis of . PLAN: Cervidil induction for ripening followed by induction of labor. Hospital Course Patient underwent a Primary section on hospital day # 2 November 17 for failure to progress. Her surgery went well without complications. On POD # 0 she became symptomatic feeling lightheaded and dizzy. Her HGb was found to be at 7.2 and therefore was transfused two units PRBC. Her Hgb was stable for the rest of her hospital stay reaching 9.2. Her diet and activity were advanced as tolerated. Her incision was clean/dry/intact. SHe was discharged home on POD # 3 November 9th with discharge instructions. Total time spent on discharge = 30 mins This includes examination of the patient, discharge planning, medication reconciliation, and communication with other providers. Discharge Instructions ACTIVITY RECOMMENDATIONS: * Gradual return to full activity over the next 2-3 weeks. * No lifting - nothing heavier than baby over the next 2-3 weeks. * Do not engage in vigorous exercise, sexual activity or sports until cleared by your physician. * Do not drive or operate any motorized equipment until cleared by your physician. * You may shower/bathe daily. BREAST CARE: If you are not breast feeding: * Wear a supportive bra 24 hours a day for one to two weeks. * Avoid stimulating your breasts and nipples as much as possible during the first few weeks after delivery. * When taking a shower, have the warm water hit your back, not breasts. * When your breasts feel full, apply ice packs. Usually three to four times a day helps ease the discomfort. * Take a mild pain medication (Tylenol/Motrin) when you are uncomfortable. If breast feeding: * Use breast milk to lubricate nipples. Lansinoh cream may be used for sore nipples. You do not need to remove cream prior to breast feeding. If using a different brand of cream, check the label for directions regarding removal of cream prior to nursing. * Wear a supportive bra. * If having problems with breasts or breast feeding, call a regional sales consultant or your health care provider. OVER THE COUNTER MEDICATION: * For discomfort or pain, you may use Acetaminophen (Tylenol), Ibuprofen (Advil ), or Naproxen (Aleve) following the package directions. * For constipation you may use Colace following the package directions. SPECIAL CARE INSTRUCTIONS: When you are discharged from the hospital, it is important for you to follow the instructions listed below: * During the first week at home, you should be able to care for yourself and your baby. In addition, the usual light household activities are encouraged. * Limit your activities to the way you feel. Do not try to clean the house or move furniture. Be sensible. * If you actively engage in sports and have done so up until the time of your delivery, you may resume these activities as soon as you feel able. This may take up to one month or even longer. Use good judgment. * Continue to take your vitamins for at least six weeks after the of your baby. * Your diet need not be limited unless you were on a special diet before your delivery. Breast-feeding mothers need around 2500 calories per day and at least 64-80 ounces of fluid per day (8 to 10 glasses). * You should eat foods from the four major food groups. Crash diets or fad diets are to be avoided. Eating lean meats, fresh fruits and vegetables, low-fat dairy products, high fiber foods and a regular exercise program, will help you get back to your pre- weight without putting your health at risk. * Constipation is sometimes a problem after delivery. Take a mild laxative as needed. If breast feeding, Milk of Magnesia is acceptable to use. You may use a suppository or Fleets enema if no episiotomy. * A daily shower or tub bath is suggested. Be sure to thoroughly and gently dry the perineum. * A bloody vaginal discharge will usually continue until around four weeks post . A small amount of bleeding may continue for as long as six weeks. Vaginal discharge changes from the bright red bleeding after delivery to pink then brownish and finally yellowish-pink before becoming white and disappearing. * Bleeding may increase with activity. Your first period may come in 4-8 weeks. If you are breast feeding, your period may be delayed even longer. * [place] (sex) can begin whenever both you and your partner feel comfortable and do not have any form of genital infection. It is recommended that you wait at least six weeks for internal and external healing to occur. If you have questions, please talk to your health care practitioner. A condom should be used to prevent infection and . * Foreplay, gentle intercourse and lubrication is very important the first several times to prevent pain. A water-based lubricant such as K-Y jelly or Astroglide may be used. * Tampons and/or Douching should be avoided until after six weeks check-up. * If you have RH negative blood and your baby is RH positive, you will receive RHOGAM by injection prior to discharge. The nurse will give you a card to keep with you that has the date and place that you received RHOGAM after delivery. * During your care, you had a Rubella screen done to check for the presence of rubella antibodies in your blood. If your test was negative, you will receive a Rubella vaccine prior to discharge. This vaccine may cause a fever, soreness at the injection site and flu-like symptoms. If these symptoms persist, notify your health care practitioner. is not advised for three months after a Rubella vaccine. * Verbalizes understanding of car seat law as reviewed with patient nursing. * Car Seat hand-out given and reviewed with patient by nursing. * Shaken baby information reviewed with patient by nursing. Call you doctor if: * Heavy bleeding (saturating several pads an hour) or passing clots the size of your fist. * A fever >101 degrees F (38.3 degrees C) on two occasions four hours apart and /or chills. * Unusual pain in the pelvic or vaginal areas. Pain should improve each day . * Call the doctor for any increased redness, drainage or swelling around the incision and any pain unrelieved by prescribed pain medication. * Any signs or symptoms of phlebitis (possible blood clots forming in the veins ): leg pain, warm, red or swollen area on leg. * "Baby Blues" lasting longer than two weeks. If you have any questions or concerns, call your health care practitioner at . FOLLOW-UP VISIT: * Incision check (staple removal) in 1 week. Please call doctor's office at to set up appointment. * Please call the office at to schedule a 6 week examination. It is important you keep this appointment. * It is important for you to make arrangements for either yearly or twice yearly check-ups thereafter.
== END 2016-11-20 10:10 | disposition home or self-care (01) | DRG 765 ==
LOC: C.LD 14:40 → C.OBG 11-17 15:55
PROVIDERS: ADMIT Obstetrics & Gynecology; ATTEND Obstetrics & Gynecology
PROC: 3E0P7GC Introduction of Other Therapeutic Substance into Female Reproductive, Via Natural or Artificial Opening (ICD-10-PCS; principal; 2016-11-17 05:41)
PROC: 10D00Z1 Extraction of Products of Conception, Low, Open Approach (ICD-10-PCS; principal; 2016-11-17 05:41)
PROC: 4A1HXCZ Monitoring of Products of Conception, Cardiac Rate, External Approach (ICD-10-PCS; principal; 2016-11-17 05:41)
DX: O26.613 Liver and biliary tract disorders in pregnancy, third trimester (principal); K83.1 Obstruction of bile duct; O32.4XX0 Maternal care for high head at term, not applicable or unspecified; O99.52 Diseases of the respiratory system complicating childbirth; J45.909 Unspecified asthma, uncomplicated; K21.9 Gastro-esophageal reflux disease without esophagitis; F41.9 Anxiety disorder, unspecified; O75.89 Other specified complications of labor and delivery; O99.344 Other mental disorders complicating childbirth; Z3A.38 38 weeks gestation of pregnancy; Z37.0 Single live birth; R00.0 Tachycardia, unspecified; O99.334 Smoking (tobacco) complicating childbirth; F17.210 Nicotine dependence, cigarettes, uncomplicated; Z82.49 Family history of ischemic heart disease and other diseases of the circulatory system; O75.81 Maternal exhaustion complicating labor and delivery; O62.8 Other abnormalities of forces of labor; O99.013 Anemia complicating pregnancy, third trimester; D64.9 Anemia, unspecified

== ENCOUNTER 2017-10-08 05:07 | Emergency (ER) | payer BC, OTHER ==
[~2017-10-08] VITALS: Ht 157.5 cm; Wt 98.9 kg
[~2017-10-08 05:07] MED LIST changes: +CLC100 PO; +CLCC1250 PO; -FERR1TAB23; +FRRS300 PO; +MGNO400 PO; +MISC-836; +MTR600X PO; +OXYC-57 PO; -PRENTAB26 PO; +VNTHFA/IN INH
[2017-10-08] MEDS ORDERED: LIDOCAINE HCL 2% VISC SOLN 20 ML UDC PO STA (05:15)
[2017-10-08] MEDS ORDERED: ALUMINUM/MAGNESIUM SUSP 30 ML UDC PO STA (05:15)
[2017-10-08] MEDS ORDERED: SODIUM CHLORIDE 0.9% 1000ML 2,000 ML IV STA (05:15)
[2017-10-08] MEDS ORDERED: ONDANSETRON INJ 2 MG/ML 2 ML VIAL IV STA (05:15)
[2017-10-08 05:19] VITALS: Ht 157.5 cm; Wt 98.9 kg
[2017-10-08] MEDS ORDERED: KETOROLAC TROMETHAMINE 30 MG/ML VIAL IV STA (05:19)
[2017-10-08 05:54] LABS: BASO % 0.2 %; BASO ABS # 0.03 K/uL (0-0.2); EOS % 0.3 %; EOS ABS # 0.04 K/uL (0-0.5); HEMATOCRIT 43.7 % (37-47); HEMOGLOBIN 15.5 g/dL (12.0-16.0); IG# 0.02 K/uL (0.00-0.02); LYMPH ABS # 0.24 K/uL (1.2-3.4); MEAN CELL VOLUME 89.4 fL (80-100); MEAN CORPUSCULAR HEMOGLOBIN 31.7 pg (25-34); MEAN CORPUSCULAR HGB CONC 35.5 g/dl (32-36); MEAN PLATELET VOLUME 9.9 fL (7.4-10.4); MONO ABS # 0.61 K/uL (0.11-0.59); NEUT % 92.3 %; NEUT ABS # 11.32 K/uL (1.4-6.5); PLATELET COUNT 282 K/uL (130-400); RED CELL DISTRIBUTION WIDTH CV 12.9 % (11.5-14.5); RED CELL DISTRIBUTION WIDTH SD 42.2 fL (36.4-46.3); WHITE BLOOD COUNT 12.26 K/uL (4.8-10.8)
[2017-10-08 06:21] LABS: ALBUMIN 3.9 gm/dl (3.4-5.0); CALCIUM 8.7 mg/dl (8.5-10.1); CREATININE 0.72 mg/dl (0.60-1.20); POTASSIUM 3.6 mmol/L (3.5-5.1)
[2017-10-08] MEDS ORDERED: PANT20TA2 PO (06:21)
[2017-10-08] MEDS ORDERED: CITA20TA9 PO (06:21)
[2017-10-08] MEDS ORDERED: CLR10 PO (06:22)
[2017-10-08 06:23] LABS: TOTAL PROTEIN 8.1 gm/dl (6.4-8.2)
[2017-10-08] MEDS ORDERED: SODIUM CHLORIDE 0.9% 1000ML 1,000 ML IV STA (06:43)
[2017-10-08] MEDS ORDERED: ONDANSETRON HOME PACK 4MG OD TAB PO ONE (06:45)
[2017-10-08 07:30] VITALS: BP 124/67; PULSE 90; TEMP 37.1; O2SAT 98
--- NOTE | 2017-10-08 23:23 | EMERGENCY ROOM VISIT NOTE ---
History First contact with patient: 05:08 Chief Complaint: VOMITING Stated Complaint: NAUSEA/VOMITING Nursing Triage Summary: nausea/vomting since 1800, fiance also sick, abd/back/rib pain since that time History of Present Illness The patient is a 27 year old female who presents to the Emergency Room with complaints of nausea and vomiting for the past day who then developed abdominal and back cramping. Patient states her fianc is sick with vomiting also. Patient complains of numerous episodes of vomiting as nonbloody nonbilious non- coffee-ground in nature. Patient denies chest pain, dyspnea, fever, chills, diarrhea, urinary symptoms. She cannot keep fluids down. She is not breast- feeding. Review of Systems An 10 system review of systems was completed with positives and pertinent negatives listed in the HPI. Past Medical/Surgical History None Social History Smoking Status: Current Every Day Smoker Drug Use: none Marital Status: in relationship Housing Status: lives with family Current/Historical Medications Scheduled Citalopram Hydrobromide (Celexa), 20 MG PO DAILY Loratadine (Claritin), 10 MG PO DAILY Pantoprazole Sodium (Protonix), 20 MG PO DAILY Ranitidine Hcl (Zantac), 150 MG PO DAILY Scheduled PRN Albuterol Hfa (Ventolin Hfa), 2-4 PUFFS INH Q6H PRN for Wheezing Physical Exam Vital Signs Date Time Temp Pulse Resp B/P (MAP) Pulse Ox O2 Delivery O2 Flow Rate FiO2 10/08/17 07:30 37.1 90 22 124/67 98 10/08/17 06:46 102 21 122/73 99 10/08/17 06:33 131/75 10/08/17 06:17 108 27 99 Room Air 10/08/17 06:01 113/68 10/08/17 05:47 100 21 96 10/08/17 05:47 102 10/08/17 05:42 102 19 97 10/08/17 05:37 100 17 95 10/08/17 05:35 121/66 10/08/17 05:27 114 26 95 10/08/17 05:22 116 96 Room Air 10/08/17 05:20 120/82 10/08/17 05:19 37.5 116 22 120/82 97 Room Air Physical Exam VITALS: Vitals are noted on the nurse's note and reviewed by myself. Vital signs stable. GENERAL: Pleasant female, in no acute distress, nondiaphoretic, well-developed well-nourished. SKIN: The skin was without rashes, erythema, edema, or bruising. There is no tenting of the skin. Capillary reflex less than 2 seconds. HEAD: Normocephalic atraumatic. EARS: External auditory canals clear, tympanic membranes pearly cramer without erythema or effusion bilaterally. EYES: Pupils equal round and reactive to light and accommodation. Conjunctivae without injection, sclerae without icterus. Extraocular movements intact. NOSE: Patent, turbinates without inflammation or discharge. No sinus tenderness. MOUTH: Mucous membranes mildly dry pharynx without erythema or exudate. Uvula midline. Airway patent. Tongue does not deviate. NECK: Supple without nuchal rigidity. No lymphadenopathy. No thyromegaly. Cervical spine is nontender. No JVD. HEART: Regular rate and rhythm without murmurs gallops or rubs. LUNGS: Clear to auscultation bilaterally without wheezes, rales or rhonchi. No retractions or accessory muscle use. ABDOMEN: Positive bowel sounds x 4. Normal tympanic percussion. Soft, nontender, without masses or organomegaly. Worthy sign negative. No guarding or rebound tenderness. No CVA tenderness MUSCULOSKELETAL: No muscle atrophy, erythema, or edema noted. NEURO: Patient was alert and oriented to person place and time. Normal sensation to light and sharp touch. No focal neurological deficits. Medical Decision & Procedures Laboratory Results 10/08/17 05:30 Red Blood Count 4.89, Mean Corpuscular Volume 89.4, Mean Corpuscular Hemoglobin 31.7, Mean Corpuscular Hemoglobin Concent 35.5, Mean Platelet Volume 9.9, Neutrophils (%) (Auto) 92.3, Lymphocytes (%) (Auto) 2.0, Monocytes (%) (Auto) 5.0, Eosinophils (%) (Auto) 0.3, Basophils (%) (Auto) 0.2, Neutrophils # (Auto) 11.32, Lymphocytes # (Auto) 0.24, Monocytes # (Auto) 0.61, Eosinophils # (Auto) 0.04, Basophils # (Auto) 0.03 10/08/17 05:30 Test 10/08/17 05:15 10/08/17 05:30 Urine Color DK YELLOW Urine Appearance CLOUDY (CLEAR) Urine pH 8.0 (4.5-7.5) Urine Specific [place] 1.033 (1.000-1.030) Urine Protein NEG (NEG) Urine Glucose (UA) NEG (NEG) Urine Ketones TRACE (NEG) Urine Occult Blood NEG (NEG) Urine Nitrite NEG (NEG) Urine Bilirubin NEG (NEG) Urine Urobilinogen NEG (NEG) Urine Leukocyte Esterase TRACE (NEG) Urine WBC (Auto) 10-30 /hpf (0-5) Urine RBC (Auto) 0-4 /hpf (0-4) Urine Hyaline Casts (Auto) 0 /lpf (0-5) Urine Epithelial Cells (Auto) >30 /lpf (0-5) Urine Bacteria (Auto) 1+ (NEG) Urine Renal Epithelial Cells /lpf (0-5) Urine Mucus PRESENT (NONE PRSENT) Urine Test NEG (NEG) White Blood Count 12.26 K/uL (4.8-10.8) Red Blood Count 4.89 M/uL (4.2-5.4) Hemoglobin 15.5 g/dL (12.0-16.0) Hematocrit 43.7 % (37-47) Mean Corpuscular Volume 89.4 fL (80-100) Mean Corpuscular Hemoglobin 31.7 pg (25-34) Mean Corpuscular Hemoglobin Concent 35.5 g/dl (32-36) Platelet Count 282 K/uL (130-400) Mean Platelet Volume 9.9 fL (7.4-10.4) Neutrophils (%) (Auto) 92.3 % Lymphocytes (%) (Auto) 2.0 % Monocytes (%) (Auto) 5.0 % Eosinophils (%) (Auto) 0.3 % Basophils (%) (Auto) 0.2 % Neutrophils # (Auto) 11.32 K/uL (1.4-6.5) Lymphocytes # (Auto) 0.24 K/uL (1.2-3.4) Monocytes # (Auto) 0.61 K/uL (0.11-0.59) Eosinophils # (Auto) 0.04 K/uL (0-0.5) Basophils # (Auto) 0.03 K/uL (0-0.2) RDW Standard Deviation 42.2 fL (36.4-46.3) RDW Coefficient of Variation 12.9 % (11.5-14.5) Immature Granulocyte % (Auto) 0.2 % Immature Granulocyte # (Auto) 0.02 K/uL (0.00-0.02) Anion Gap 8.0 mmol/L (3-11) Est Creatinine Clear Calc Drug Dose 129.0 ml/min Estimated GFR () 133.0 Estimated GFR (Non- 114.8 BUN/Creatinine Ratio 22.0 (10-20) Calcium Level 8.7 mg/dl (8.5-10.1) Total Bilirubin 0.6 mg/dl (0.2-1) Direct Bilirubin 0.1 mg/dl (0-0.2) Aspartate Amino Transf (AST/SGOT) 15 U/L (15-37) Alanine Aminotransferase (ALT/SGPT) 29 U/L (12-78) Alkaline Phosphatase 114 U/L (45-117) Total Protein 8.1 gm/dl (6.4-8.2) Albumin 3.9 gm/dl (3.4-5.0) Lipase 77 U/L (73-393) Medications Administered Medications (Trade) Dose Ordered Sig/Power Route Start Time Stop Time Status Last Admin Dose Admin Ondansetron HCl (Zofran Inj) 4 mg NOW STAT IV 10/08/17 05:15 10/08/17 05:16 DC 10/08/17 05:43 4 MG Sodium Chloride 2,000 ml @ 999 mls/hr Q2H1M STAT IV 10/08/17 05:15 10/08/17 07:15 DC 10/08/17 05:37 999 MLS/HR Lidocaine HCl (Viscous Lidocaine 2% Soln) 10 ml NOW STAT PO 10/08/17 05:15 10/08/17 05:16 DC 10/08/17 05:45 10 ML Al Hydroxide/Mg Hydroxide (Maalox Susp) 30 ml NOW STAT PO 10/08/17 05:15 10/08/17 05:16 DC 10/08/17 05:45 30 ML Ketorolac Tromethamine (Toradol Inj) 15 mg NOW STAT IV 10/08/17 05:19 10/08/17 05:20 DC 10/08/17 06:06 15 MG Ondansetron HCl (ZOFRAN ODT 4MG Home Pack) 1 homepack UD ONCE PO 10/08/17 06:45 10/08/17 06:46 DC 10/08/17 06:50 1 HOMEPACK Sodium Chloride 1,000 ml @ 999 mls/hr Q1H1M STAT IV 10/08/17 06:43 10/08/17 07:43 DC 10/08/17 06:47 999 MLS/HR ED Course Prior records/ancillary studies reviewed. Triage Nursing notes reviewed. The patient's history was concerning for nausea, vomiting, and abdominal pain. Differential diagnosis: Etiologies such as gastroenteritis, food borne illness, infections, appendicitis , diverticulitis, inflammatory bowel disease, obstruction, GI bleed, biliary pathology, as well as others were entertained. Physical examination findings: As above. Abdominal examination revealed no tenderness. Vital signs reviewed and revealed stable. ER treatment provided: IV hydration 2 L NSS. Zofran, Toradol, GI cocktail On reassessment the patient felt better. Patient was tolerating p.o. intake. Diagnostics interpretation by me: The labs revealed mild leukocytosis, most likely marginalization from vomiting. Negative hCG UA seems consistent with contamination This appears to be consistent with vomiting most likely viral in etiology. Boubacar is sick with similar symptoms. Patient did not have acute abdomen on exam. She is well-appearing. She is tolerating fluids. She is advised to rest , stay well-hydrated, clear liquid diet today and progress as tolerated to bland diet tomorrow. Patient was advised to follow-up family care in a day or 2 here in the ER sooner for abdominal pain, fevers, vomiting, worsening signs or symptoms or as needed. By the evaluation outlined above emergent etiologies such as appendicitis, diverticulitis, obstruction, cardiac sources, mesenteric ischemia, aortic pathology, inflammatory bowel disease, renal colic, PUD, biliary pathology, UTI, as well as others were deemed relatively unlikely. The pt informed about the findings as listed above. All questions were answered and pleased with the treatment. Return instructions were outlined and the patient was discharged in stable condition. Outpatient prescription management: Zofran Referral: The patient was referred to their primary care physician for follow-up in 2 to 3 days for a recheck of the current condition. The chart was completed utilizing [employer] voice recognition software. Grammatical errors, random word insertions, pronoun errors, and incomplete sentences are an occassional consequence of this system due to software limitations, ambient noise, and hardware issues. Any formal questions or concerns about the content, text, or information contained within the body of this dictation should be directly addressed to the physician recycling assistant for clarification. Medical Decision As above Medication Reconcilliation Current Medication List: was personally reviewed by me Blood Pressure Screening Patient's blood pressure: Normal blood pressure Impression Primary Impression: Vomiting Departure Information Dispostion Home / Self-Care Condition GOOD Referrals Jose Enrique Jenkins M.D. (PCP) Patient Instructions My [facility] Additional Instructions DO NOT drive, drink alcohol, operate machinery, or perform dangerous activities today. You were given medications in the ER that can affect your ability to safely function or operate a vehicle. Zofran(odansetron) tablets 4mg: Take one and allow it to dissolve in your mouth every four to six hours as needed for nausea or vomiting. Rest and drink plenty of fluids as tolerated. Slow sips of water or sports drinks are recommended instead of large amounts all at once. Continue current medications. Once your stomach is settled start with a clear liquid diet (jello, soup broth, etc.) and then advance as tolerated. You should avoid full, heavy meals for about 24 hrs from the time your symptoms resolved. Return to the ER for persistent vomiting, fevers, abdominal pain, chest pains, difficulty breathing, black or bloody stools, worsening of your condition, or as needed. Follow up with your primary physician in 2-3 days for a recheck of your current condition. Problem Qualifiers Primary Impression: Vomiting Vomiting type: unspecified Vomiting Intractability: non-intractable Nausea presence: with nausea Qualified Codes: R11.2 - Nausea with vomiting, unspecified
== END 2017-10-08 07:35 | disposition home or self-care (01) ==
LOC: EDBD 05:07 → C.EDB 05:08
DX: R11.2 Nausea with vomiting, unspecified (principal); R10.9 Unspecified abdominal pain; M54.9 Dorsalgia, unspecified; F17.200 Nicotine dependence, unspecified, uncomplicated

== ENCOUNTER 2020-02-10 22:37 | Inpatient (IN) ==
[2020-02-10] MEDS ORDERED: LACTATED RINGER'S 1,000 ML IV SCH (23:45)
[2020-02-10] MEDS ORDERED: cefOXitin 2,000 MG in DEXTROSE 5% 50 ML IV ONE (23:45)
[2020-02-11 00:13] LABS: Basophils # (auto) 0.01 K/uL (0-0.2); Basophils % (auto) 0.1 %; Eosinophils # (auto) 0.18 K/uL (0-0.5); Eosinophils % (auto) 1.8 %; Hematocrit (blood only) 37.7 % (37-47); Hemoglobin 12.3 g/dL (12.0-16.0); Immature Granulocytes # (auto) 0.03 K/uL (0.00-0.02); Immature Granulocytes % (auto) 0.3 %; Lymphocytes # (auto) 1.54 K/uL (1.2-3.4); Lymphocytes % (auto) 15.7 %; Mean Corpuscular Hemoglobin 29.8 pg (25-34); Mean Corpuscular Volume 91.3 fL (80-100); Monocytes # (auto) 0.92 K/uL (0.11-0.59); Monocytes % (auto) 9.4 %; Neutrophils # (auto) 7.11 K/uL (1.4-6.5); Neutrophils % (auto) 72.7 %; Platelet Count 244 K/uL (130-400); RDW Coefficient of Variation 13.6 % (11.5-14.5); RDW Standard Deviation 44.8 fL (36.4-46.3); Red Blood Count 4.13 M/uL (4.2-5.4); White Blood Count 9.79 K/uL (4.8-10.8)
[2020-02-11] MEDS ORDERED: CITRIC ACID/SODIUM CITRATE 15 ML UDC ONE (00:16)
[2020-02-11 00:21] LABS: Mean Corpuscular Hgb Conc 32.6 g/dL (32-36)
[2020-02-11] MEDS ORDERED: fentaNYL citrate 100 MCG/2 ML VIAL ONE (00:43)
[2020-02-11] MEDS ORDERED: OXYTOCIN 10 UNITS/ML VIAL ONE ×3 (00:43→02:27)
[2020-02-11] MEDS ORDERED: PHENYLEPHRINE HCL 10 MG/ML VIAL ONE (00:44)
[2020-02-11] MEDS ORDERED: MoRPHine SULFATE PF 1 MG/ML 10 ML AMP/VIAL ONE (00:44)
--- NOTE | 2020-02-11 00:53 | Anesthesiology Consultation ---
Date of Service February 11, 2020 The patient has not been tested for Covid 19. She has no known exposure to Covid 19. Assessment & Plan Chart Review Chart Review: Patient NOT seen in Pre Admission Testing and Acceptable Risk for Labor Epidural Consults Requested none ASA [id number] Proposed Anesthesia Anesthesia Type: Labor Epidural and CSE Risk / Benefits Reviewed With: PT / POA / Parent / Guardian, Accepts Plan and Informed Consent Obtained History Height/Weight Height: 5 ft 2.5 in Weight: 109.316 kg Allergies Allergy/AdvReac Type Severity Reaction Status Date / Time banana AdvReac Mild mouth jeronimo Verified 02/02/20 23:41 Medications Home Medications Medication Instructions Recorded Confirmed Last Taken albuterol sulfate [Ventolin HFA] 2 puff INHALATION QID PRN 07/13/19 02/11/20 02/01/20 12:00 citalopram [Celexa] 20 mg PO HS 07/13/19 02/11/20 02/09/20 23:00 pantoprazole [Protonix] 40 mg PO HS 07/13/19 02/11/20 02/09/20 23:00 loratadine 10 mg PO DAILY PRN 09/13/19 02/11/20 02/09/20 23:00 vit-iron fum-folic ac 1 tab PO DAILY 02/02/20 02/11/20 02/09/20 23:00 [ Vitamin] NPO Date Last Intake of Fluids: 02/10/20 Time Last Intake of Fluids: 22:00 Date Last Intake of Solids: 02/10/20 Time Last Intake of Solids: 22:00 Past Medical History Medical History Anxiety Asthma Fracture of elbow, closed 1998 GERD (gastroesophageal reflux disease) Migraine Miscarriage Obesity Smoker Subchorionic hemorrhage Exercise / Class Metabolic Activity II 4-5 Yardwork/Stairs/Walk up hill Past Surgical History Surgical History H/O wisdom tooth extraction 2015 Previous section 2017 Past Anesthesia History No Hx of Anesthesia Complications and No Family Hx of Anesthesia Complications History of PONV No Hx of PONV and No Hx of Motion Sickness Social History Smoking Status: Current every day smoker tobacco type: e-cigarettes Smoking cigarettes per day: 10 Do You Dip or Chew Tobacco: No Hx Alcohol Use: No Hx Substance Use: No substance use type: does not use Review of Systems no chest pain or sob Physical Exam Vital Signs Last Vital Signs Temp 37.6 C H 02/10/20 22:52 Pulse 103 H 02/11/20 00:51 Resp 18 02/10/20 22:52 BP 132/77 02/10/20 22:54 Pulse Ox 99 02/11/20 00:51 Constitutional + obese ENMT Mouth: no TMJ abnormality Thyromental Distance: > or= 3.5 Finger Breadths Mallampati Class: II Neck normal visual inspection Respiratory normal respiratory effort Auscultation: lungs clear to auscultation bilaterally Cardiovascular Rate/Rhythm: regular rate and regular rhythm Musculoskeletal Spine: normal cervical ROM Neurologic moves all extremities Psychiatric Orientation: alert and oriented x 3 Testing Laboratory Results 02/11/20 00:03
[2020-02-11] MEDS ORDERED: NALOXONE HCL 1 MG in SODIUM CHLORIDE 0.9% 1000ML 1,000 ML IV PRN (00:56)
[2020-02-11] MEDS ORDERED: NALOXONE HCL 0.08 MG in SYRINGE 1.8 ML IV PRN (00:56)
[2020-02-11] MEDS ORDERED: HYDROmorphone INJ 0.5 MG/0.5 ML SYR IV PRN (00:56)
[2020-02-11] MEDS ORDERED: ONDANSETRON INJ 2 MG/ML 2 ML VIAL IV PRN ×2 (00:56→18:56)
[2020-02-11] MEDS ORDERED: DiphenhydrAMINE HCL 50 MG/ML VIAL IV PRN ×2 (00:56→18:56)
[2020-02-11] MEDS ORDERED: LACTATED RINGER'S 500 ML IV PRN (00:56)
[2020-02-11] MEDS ORDERED: MoRPHine SULFATE PF 1 MG/ML 10 ML AMP/VIAL INT SPINAL ONE (00:56)
[2020-02-11] MEDS ORDERED: NALOXONE HCL 0.4 MG/1 ML VIAL/CARP IV PRN (00:56)
[2020-02-11] MEDS ORDERED: ePHEDrine sulfate 50 MG/ML AMP IV PRN (00:56)
[2020-02-11] MEDS ORDERED: SODIUM CHLORIDE 0.9% 1000ML 1,000 ML IV SCH (01:00)
[2020-02-11] MEDS ORDERED: DC INTRASPINAL MORPHINE SCH (01:00)
[2020-02-11] MEDS ORDERED: NO NARCOTICS OR SEDATIVES SCH (01:00)
--- NOTE | 2020-02-11 01:50 | History and Physical Report ---
DATE OF ADMISSION: 02/10/2020 CHIEF COMPLAINT: Vaginal bleeding, intrauterine at 37 weeks, history of previous section. HISTORY OF PRESENT ILLNESS: The patient is a 29-year-old 3, para 1. She has had 1 first trimester miscarriage. General health is complicated by asthma. She was a former smoker, but now she vapes. She has a history of during this of a subchorionic bleed early in that resolved. She has elevated liver enzymes and she has got some pelvic pressure. Her due date is 03/02/2020 was confirmed by early ultrasound. She called because she had some bleeding when she wiped about 2-1/2 hours prior to admission. This was associated with some mild cramping. Her obstetrical history is as follows: In 2017, she had a male, 8 pounds 4 ounces at 38 weeks and 4 days. She was induced due to elevated liver enzymes and after a 2-day induction she was section for failure to progress. As previously stated, she had an episode of bleeding. She said the first time she wiped it was bright red blood. She was told to come to the hospital for evaluation. PAST MEDICAL HISTORY: She has asthma. ALLERGIES: She has no known drug allergies. PAST SURGICAL HISTORY: She has had a . She had wisdom teeth removed and she had surgery on her left elbow she was about 8 years old. MEDICAL HISTORY: She has been asthmatic for about 7 years, uses an inhaler p.r.n. SOCIAL HISTORY: Prior smoker. Presently she vapes. No history excessive alcohol intake. She is a homemaker. FAMILY HISTORY: Her mom is 56, has severe COPD, was a former smoker. Her father is 60, is in hospice, has dying metastatic cancer. She has 2 half sisters in good health. One brother in good health. REVIEW OF SYSTEMS: She has history of asthma. No history of migraine headaches. PHYSICAL EXAMINATION: GENERAL: Well-developed, well-nourished 29-year-old white female, alert, oriented x3 and cooperative in no acute distress, appeared her stated age. EYES: Conjunctivae are pink. Sclerae white, no evidence of jaundice. EARS: Had normal light reflex bilaterally. NOSE: Had normal mucosa. Septum is midline. HEART: Had regular rhythm. S1, S2 are normal. LUNGS: Clear to auscultation and percussion. ABDOMEN: Soft and nontender. There were no contractions palpable. The estimated weight is 8 pounds. No CVA tenderness. MUSCULOSKELETAL: No calf tenderness. PELVIC: Vertex presentation. Cervix was posterior, 1 cm dilated, uneffaced. There was some dark blood on the examiner's hand. IMPRESSIONS OF THIS CASE: History of asthma, history of wisdom teeth removal, previous section, history of elbow fracture, history of elevated liver enzymes in prior and vaginal bleeding at 37 weeks gestation. MTDD
[2020-02-11] MEDS ORDERED: ONDANSETRON INJ 2 MG/ML 2 ML VIAL ONE (01:55)
[2020-02-11] MEDS ORDERED: SUPERCREAM 0.870% 15 GM JAR EXT PRN (02:54)
[2020-02-11] MEDS ORDERED: SENNA 8.6 MG TAB PO PRN (02:54)
[2020-02-11] MEDS ORDERED: MAGNESIUM HYDROXIDE SUSP 30 ML UDC PO PRN (02:54)
[2020-02-11] MEDS ORDERED: HYDROCORTISONE ACETATE 25 MG SUPP PR PRN (02:54)
[2020-02-11] MEDS ORDERED: BENZOCAINE 20% AER SPR 82.5 GM CAN EXT PRN (02:54)
[2020-02-11] MEDS ORDERED: DIPHTHERIA/TETANUS/PERTUSSIS 0.5 ML SYR/VIAL IM ONE (02:54)
--- NOTE | 2020-02-11 02:55 | Post Operative Brief Note ---
Immediate Post Op Note v1 Date of Surgery February 11, 2020 Pre & Post Diagnosis Operation Date: 02/11/20 01:30 Pre-Op Diagnosis: Repeat Section Post-Op Diagnosis: Same as preop I identified the patient and participated in the time-out.: Yes Procedure Operation Date: 02/11/20 01:30 Actual Procedures p Repeat Section in LD for a viable baby girl at(Not Applicable) - Fahad Mccray MD Surgeon Fahad Mccray MD Communications Project Lead Dr Miller Estimated Blood Loss 800 Findings Consistent with Post-Op Diagnosis Fluids 2000 ml Specimens placenta Drains Payne Catheter (Payne Catheter inserted prior to procedure and monitored by anesthesia) Anesthesia Type MAC Spinal Regional Disposition Accompanied Patient To Recovery: No Disposition: Recovery Room
--- NOTE | 2020-02-11 03:16 | Anesthesiology Progress Note ---
Date of Service February 11, 2020 Anesthesia Post Procedure Vital Signs Vital Signs: Temp Pulse Resp BP Pulse Ox 02/11/20 03:11 93 H 93 02/11/20 03:10 97 H 95 02/11/20 03:05 104 H 93 02/11/20 03:04 98 H 122/57 L 02/11/20 03:01 100 H 93 02/11/20 03:00 98 H 98 02/11/20 01:16 119 H 99 02/11/20 01:11 109 H 98 02/11/20 01:06 103 H 99 02/11/20 01:01 103 H 99 02/11/20 00:56 106 H 99 02/11/20 00:51 103 H 99 02/11/20 00:46 110 H 99 02/11/20 00:41 108 H 99 02/10/20 22:54 107 H 132/77 02/10/20 22:52 37.6 C H 107 H 18 132/77 02/10/20 22:45 118 H 139/75 Transfer of Care Handoff Completed per policy Notes Mental Status: alert / awake / arousable Patient Amnestic to Procedure: Yes Nausea / Vomiting: adequately controlled Pain: adequately controlled Airway Patency, RR, SpO2: stable & adequate BP & HR: stable & adequate Hydration State: stable & adequate Neuraxial Anesthesia: was administered and sensory block is resolving Anesthetic Complications: no major complications apparent and Pt Satisfied with anesthetic care
[2020-02-11] MEDS ORDERED: OXYTOCIN 10 UNITS/ML VIAL IM ONE (03:48)
[2020-02-11] MEDS: OXYTOCIN 20 UNITS in LACTATED RINGER'S 1,000 ML IV SCH ×2 (03:59→10:46)
[2020-02-11] MEDS: KETOROLAC 30 MG/ML VIAL IV PRN ×2 (04:40→17:02)
[2020-02-11] MEDS: FERROUS SULFATE 325 MG TAB PO SCH (07:15)
[2020-02-11] MEDS: DOCUSATE SODIUM 100 MG CAP PO SCH ×2 (07:15→22:07)
[2020-02-11] MEDS: PRENATAL VITAMIN 1 TAB PO SCH (07:15)
[2020-02-11] MEDS: SIMETHICONE 80 MG CHEW PO SCH ×4 (07:15→22:06)
--- NOTE | 2020-02-11 07:29 | Operative Report (OR) ---
DATE OF OPERATION: 02/11/2020 She is 3, para 2, blood type is O positive at 37 weeks, previous section, admitted with vaginal bleeding. PREOPERATIVE DIAGNOSES: Intrauterine , 37 weeks 1 day vaginal bleeding, previous . POSTOPERATIVE DIAGNOSES: Intrauterine , 37 weeks 1 day vaginal bleeding, previous , delivered live . Nuchal cord x1. SURGEON: Isauro Mccray MD HEARING DOG TRAINER: Dr. Miller. ESTIMATED BLOOD LOSS: 800 mL ANESTHESIA: Spinal. OPERATIVE FINDINGS AND PROCEDURE: The patient was brought to the OR table, correctly identified by armband and conversation. Payne catheter was inserted aseptically in the bladder. The compression stockings were applied. Lower abdomen was painted with an alcohol based sterilizing solution, draped in usual sterile fashion. Adequacy of the spinal anesthesia was checked and found to be good. Then, a Pfannenstiel incision was made through a previous scar. Incision was carried down to the anterior fascia by sharp dissection. Hemostasis was secured by electrocauterization. Fascia was incised transversely from the underlying muscle by blunt and sharp dissection. Recti muscles were in the midline exposing the peritoneum which was carefully raised and entered. A retractor was placed to expose the lower uterine segment. Incision was made above the vesicouterine fold. Bladder was undermined bluntly and pushed out of the operative field. Lower uterine segment was scored with a knife and then entered bluntly with the scissors. The incision was extended laterally with the 2 fingers. Vectis retractor was applied to the 's head and with fundal pressure, the 's head was delivered. There was a nuchal cord which was reduced over the head. Then the body was delivered without difficulty. Cord was stripped clamped and cut and baby was given to the packager, ____ who was scrubbed and present at the time of delivery. Following this, cord blood was taken. Placenta was removed manually. Uterine cavity was cleansed with a clean sponge. 10 mL of Pitocin was placed into the myometrium directly. A layer closure of the myometrial defect was then performed. The muscular layer was approximated with continuous interlocking suture of heavy Vicryl. The fascial layer was approximated over this with continuous another suture of heavy Vicryl and one [id number] suture was used along the edges to complete the hemostasis. The pelvis was cleansed of all blood clots and debris. Uterus, tubes, and ovaries were reinserted into the abdominal cavity. We had to dissect the omentum off the anterior abdominal wall, which was adhesed to the anterior abdominal wall from previous . We freed up the entire omentum, pushed back. Then did a careful layered anatomical approximation of the anterior abdominal wall. Peritoneum was closed with a mattress suture of chromic catgut. Recti muscles were approximated with interrupted [id number] suture of chromic catgut. The fascia was closed with continuous interlocking suture of Vicryl on each side, tied in the midline. SubQ was approximated with a running plain. The skin edges were approximated with staple clips. The patient tolerated these procedures well and left the OR in good condition. I attest to the content of the Intraoperative Record and any orders documented therein. Any exception s are noted below.
[2020-02-11] MEDS ORDERED: LACTATED RINGER'S 1,000 ML IV SCH (11:15)
[2020-02-11] MEDS ORDERED: MEPERIDINE HCL 50 MG/ML CARP IV PRN (18:56)
[2020-02-11] MEDS ORDERED: ZOLPIDEM TARTRATE 5 MG TAB PO PRN (18:56)
[2020-02-11] MEDS ORDERED: PROMETHAZINE HCL 25 MG in SODIUM CHLORIDE 0.9% 50 ML IV PRN (18:56)
[2020-02-11] MEDS ORDERED: KETOROLAC 30 MG/ML VIAL IV PRN (18:56)
[2020-02-11] MEDS: PANTOprazole 40 MG TAB PO SCH (22:07)
[2020-02-11] MEDS: CITALOPRAM 20 MG TAB PO SCH (22:07)
[2020-02-11] MEDS: IBUPROFEN 600 MG TAB PO PRN (23:36)
[2020-02-12] MEDS: IBUPROFEN 600 MG TAB PO PRN ×4 (04:14→21:13)
[2020-02-12 07:21] LABS: Hematocrit (blood only) 29.8 % (37-47); Hemoglobin 10.1 g/dL (12.0-16.0); Mean Corpuscular Hemoglobin 31.7 pg (25-34); Mean Corpuscular Hgb Conc 33.9 g/dL (32-36); Mean Corpuscular Volume 93.4 fL (80-100); Platelet Count 206 K/uL (130-400); RDW Coefficient of Variation 13.9 % (11.5-14.5); RDW Standard Deviation 47.2 fL (36.4-46.3); Red Blood Count 3.19 M/uL (4.2-5.4); White Blood Count 7.54 K/uL (4.8-10.8)
[2020-02-12 07:22] LABS: Basophils # (auto) 0.02 K/uL (0-0.2); Basophils % (auto) 0.3 %; Eosinophils # (auto) 0.21 K/uL (0-0.5); Eosinophils % (auto) 2.8 %; Immature Granulocytes # (auto) 0.02 K/uL (0.00-0.02); Immature Granulocytes % (auto) 0.3 %; Lymphocytes # (auto) 1.42 K/uL (1.2-3.4); Lymphocytes % (auto) 18.8 %; Monocytes % (auto) 10.6 %; Neutrophils # (auto) 5.07 K/uL (1.4-6.5); Neutrophils % (auto) 67.2 %
[2020-02-12] MEDS: SIMETHICONE 80 MG CHEW PO SCH ×4 (07:57→21:17)
[2020-02-12] MEDS: FERROUS SULFATE 325 MG TAB PO SCH (07:57)
[2020-02-12] MEDS: DOCUSATE SODIUM 100 MG CAP PO SCH ×2 (07:57→21:13)
[2020-02-12] MEDS: PRENATAL VITAMIN 1 TAB PO SCH (07:57)
[2020-02-12] MEDS ORDERED: ACETAMINOPHEN 325 MG TAB PO PRN (15:42)
[2020-02-12] MEDS ORDERED: bisacodyL 5 MG TABEC PO SCH (20:00)
[2020-02-12] MEDS: CITALOPRAM 20 MG TAB PO SCH (21:13)
[2020-02-12] MEDS: PANTOprazole 40 MG TAB PO SCH (21:13)
[2020-02-12] MEDS: OXYCODONE/ACETAMINOPHEN 5mg/325mg TAB PO PRN (21:14)
[2020-02-13] MEDS ORDERED: bisacodyL 10 MG SUPP PR PRN (02:54)
[2020-02-13] MEDS: OXYCODONE/ACETAMINOPHEN 5mg/325mg TAB PO PRN ×2 (03:14→08:59)
[2020-02-13] MEDS: IBUPROFEN 600 MG TAB PO PRN ×2 (03:15→08:59)
[2020-02-13 06:45] LABS: Hematocrit (blood only) 27.9 % (37-47); Hemoglobin 9.5 g/dL (12.0-16.0)
[2020-02-13] MEDS: FERROUS SULFATE 325 MG TAB PO SCH (09:00)
[2020-02-13] MEDS: DOCUSATE SODIUM 100 MG CAP PO SCH (09:00)
[2020-02-13] MEDS: PRENATAL VITAMIN 1 TAB PO SCH (09:00)
[2020-02-13] MEDS: SIMETHICONE 80 MG CHEW PO SCH (09:56)
--- NOTE | 2020-02-13 12:13 | Obstetrical Progress Note ---
Date of Service February 13, 2020 Results & Data Vital Signs (Past 12 Hours) Vital Signs Temp Pulse Resp BP Pulse Ox 02/13/20 11:38 36.8 C 101 H 18 116/80 98 02/13/20 08:40 36.8 C 101 H 18 116/80 98
--- NOTE | 2020-02-13 12:14 | Obstetrical Progress Note ---
Date of Service February 13, 2020 Assessment & Plan (1) delivery delivered: C/sec day #3 pt doing well disch home with instructions Subjective Ambulation: ambulating normally Voiding: no voiding problems Passing Gas:: Yes Diet Tolerance:: clear liquids Lochia:: Small Feeding Type:: breast feeding Review of Systems All systems reviewed & are unremarkable except as noted in HPI & below Physical Exam Constitutional WD/WN, vitals as above well developed and well nourished Eyes PERRL, conjunctivae normal, anicteric sclerae ENMT external ear and nose normal, oropharynx normal Neck trachea midline, no thyromegaly Respiratory normal respiratory effort, lungs clear to auscultation Cardiovascular RRR, no murmur, no edema Chest (Breasts) normal inspection/palpation of breasts Gastrointestinal (Abdomen) normal bowel sounds, soft, nontender, no hepatosplenomegaly Musculoskeletal no cyanosis or clubbing, extremities motor strength 5/5 Skin no rashes, warm and dry + incision (Clean,dry and intact) Neurologic patellar DTR's 2+ bilat, sensation intact Psychiatric A+Ox3, euthymic affect Genitourinary normal external appearance Lymphatic no cervical or axillary lymphadenopathy Results & Data Vital Signs (Past 12 Hours) Vital Signs Temp Pulse Resp BP Pulse Ox 02/13/20 11:38 36.8 C 101 H 18 116/80 98 02/13/20 08:40 36.8 C 101 H 18 116/80 98
--- NOTE | 2020-02-24 14:14 | Discharge Summary (DS) ---
Mrs. Henry was admitted to the hospital at 37 weeks and 1 day gestation. She is a 29-year-old 3, para 1. She had a history of having elevated liver enzymes in previous , has been followed with tests every several weeks. She had a previous , which was associated with a failed induction after she had elevated liver enzymes that required the induction. Presently admitted. She had some pressure and pain and some vaginal bleeding on admission. On exam, moderate amount of vaginal bleeding was confirmed. She also had some discomfort with it and she was diagnosed with being in early labor. She was taken to the OR where she underwent a repeat low segment section. Her preoperative hemoglobin was 12.3. Postoperatively, hemoglobin fell to 9.5. She remained afebrile throughout her postoperative stay. Her bowel sounds returned promptly and on the third postoperative day, she was discharged to be followed in the home and office through the [facility].
== END 2020-02-13 12:20 | disposition home or self-care (01) | DRG 788 ==
LOC: OPB 22:37 → 4S1 22:38 → 4N 02-11 06:56